=== PATIENT | female | born 1950 | race Caucasian/White ===

== ENCOUNTER 2021-03-26 10:53 | Emergency (ER) | payer MEDICARE, OTHER ==
[~2021-03-26 10:53] MED LIST: ALLERGY SYRING1 EAC3 SC; ASPIRIN CHEWABL81 MG PO; ATORVASTATIN CA40 MG PO; HYDROCHLOROTH12.5 MG PO; HYDROCODON-ACE1 EAC2 PO; LISINOPRIL 20MG20 MG PO; LORAZEPAM1 MG PO; METOPROLOL SUCC50 MG PO; NORCO 5-325 TA1 EACH PO; PERCOCET 5-3251 EACH PO; PRILOSEC20 MG PO; VIT E PO; VITAMIN D32000 UNI2 PO; XARELTO10 MG PO; ZOFRAN8 MG PO
[2021-03-26] MEDS ORDERED: BACTROBAN NASAL1 GM (12:59)
== END 2021-03-26 13:00 | disposition home or self-care (01) ==
LOC: FER 10:53
DX: S01.81XA Laceration without foreign body of other part of head, initial encounter (principal); I10 Essential (primary) hypertension; Z79.82 Long term (current) use of aspirin; Z88.0 Allergy status to penicillin; Z88.1 Allergy status to other antibiotic agents; Z91.048 Other nonmedicinal substance allergy status; W00.0XXA Fall on same level due to ice and snow, initial encounter
CPT/HCPCS: 70450